=== PATIENT | male | born 1980 | race Caucasian/White ===

== ENCOUNTER → 2023-08-17 | Day surgery (SDC) | payer BC ==
[~2023-08-17] MED LIST: Acetaminophen/HYDROcodone 325-5 MG Tab PO PRN; Bupivacaine 0.25% 10 ML SDV ONE; Clindamycin Phosphate in D5W 900 MG in Premix Bag 1 BAG IV ONE; Clindamycin in 0.9 % Sod Chlor 900 MG in Premix Bag 1 BAG IV SCH; EPINEPHrine 1 MG/ML 30 ML MDV IRR ONE; Ketorolac 30 MG/ML SDV ONE; Lactated Ringers 1,000 ML IV SCH; Midazolam 1 MG/ML 2 ML SDV IVPUSH ONE; Midazolam 1 MG/ML 2 ML SDV ONE; Ondansetron 4 MG/2 ML SDV ONE; Propofol 200 MG/20 ML SDV ONE; Sodium Chloride 0.9% 10 ML Syringe FLUSH PRN; Sodium Chloride 0.9% 10 ML Syringe FLUSH SCH; ePHEDrine 50 MG/ML SDV ONE; fentaNYL 250 MCG/5 ML SDV ONE
[2023-08-17 12:51] VITALS: BP 123/83; PULSE 70
== END | disposition home or self-care (01) ==
LOC: JD.SDS 09:00
PROVIDERS: ATTEND Orthopaedic Surgery
DX: S83.241A Other tear of medial meniscus, current injury, right knee, initial encounter (principal); M22.41 Chondromalacia patellae, right knee; E78.00 Pure hypercholesterolemia, unspecified; I10 Essential (primary) hypertension; M54.2 Cervicalgia; G89.29 Other chronic pain; F17.210 Nicotine dependence, cigarettes, uncomplicated; Z88.0 Allergy status to penicillin; Z79.899 Other long term (current) drug therapy; Z79.1 Long term (current) use of non-steroidal anti-inflammatories (NSAID)
CPT/HCPCS: 01400; A9270-GY; J0171; J1885; J2250; J2405; J2704; J3010; J3490; J7120